=== PATIENT | female | born 1970 | race Caucasian/White ===

== ENCOUNTER → 2020-11-26 | Outpatient (CLI) | payer OTHER | LOC: HEART 5 14:00 | DX: R55 Syncope and collapse (principal) ==

== ENCOUNTER → 2020-12-28 | Outpatient (CLI) | payer OTHER | LOC: SLEEP-COR 15:17 | DX: R55 Syncope and collapse (principal); G47.33 Obstructive sleep apnea (adult) (pediatric) | CPT/HCPCS: 95810 ==